=== PATIENT | female | born 2000 | race Two or more races ===

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

== ENCOUNTER 2018-06-01 19:07 | Outpatient (CLI) | payer OTHER ==
[~2018-06-01 19:07] MED LIST: IRON325 MG PO; PRENATAL TABLE1 EAC1 PO
== END 2018-06-02 11:20 | disposition home or self-care (01) ==
LOC: OBS/DEL 19:07
DX: O23.43 Unspecified infection of urinary tract in pregnancy, third trimester (principal); Z34.83 Encounter for supervision of other normal pregnancy, third trimester

== ENCOUNTER 2018-07-04 20:07 | Inpatient (IN) | payer OTHER ==
[~2018-07-04] VITALS: Ht 149.9 cm; Wt 57.6 kg
== END 2018-07-06 16:21 | disposition home or self-care (01) | DRG 807 ==
LOC: OB/GYN 20:07 → LDR 20:07 → OB/GYN 23:30
PROVIDERS: ADMIT Obstetrics & Gynecology
PROC: 10E0XZZ Delivery of Products of Conception, External Approach (ICD-10-PCS; principal; 2018-07-04)
PROC: 4A1HXCZ Monitoring of Products of Conception, Cardiac Rate, External Approach (ICD-10-PCS; 2018-07-04)
DX: O80 Encounter for full-term uncomplicated delivery (principal); Z37.0 Single live birth; Z3A.37 37 weeks gestation of pregnancy